=== PATIENT | male | born 1955 | race Caucasian/White ===

== ENCOUNTER → 2018-01-25 | Outpatient (CLI) | payer OTHER ==
[~2018-01-25] MED LIST: FLX10 PO; IBUP600T44 PO; LRT5 PO; OXYC-57 PO
--- NOTE | 2018-01-25 14:38 | DIAGNOSTIC IMAGING REPORT ---
L SHOULDER MIN 2 VIEWS ROUTINE CLINICAL HISTORY: L SHOULDER PAIN pain COMPARISON: None. DISCUSSION: The bones and joint spaces appear intact. There is no evidence of fracture, dislocation or bony disease. There is no evidence for soft tissue swelling. IMPRESSION: Negative study. The above report was generated using voice recognition software. It may contain grammatical, syntax or spelling errors. Electronically signed by: Justino Larson M.D. 01/25/2018 2:37 PM Dictated Date/Time: 01/25/2018 2:36 PM
== END | disposition home or self-care (01) ==
LOC: C.RAD1850 14:24
PROVIDERS: ATTEND Nurse Practitioner Adult Health
DX: M25.512 Pain in left shoulder (principal)